=== PATIENT | female | born 1925 | race Caucasian/White ===

== ENCOUNTER → 2016-07-08 | Outpatient (CLI) | payer MEDICARE | END | disposition home or self-care (01) | LOC: PCVCCLINIC 15:12 | PROVIDERS: ATTEND Internal Medicine Cardiovascular Disease | DX: I65.23 Occlusion and stenosis of bilateral carotid arteries (principal); R06.00 Dyspnea, unspecified; R00.1 Bradycardia, unspecified; I99.8 Other disorder of circulatory system | CPT/HCPCS: 93005; 93306; 93880; 93931; G0463 ==